=== PATIENT | female | born 1965 | race Caucasian/White ===

== ENCOUNTER → 2018-07-19 | Day surgery (SDC) | payer BC, OTHER ==
[~2018-07-19] VITALS: Ht 170.1 cm; Wt 136.1 kg
[~2018-07-19] MED LIST: ATARAX,VISTARIL50 MG PO; CELEXA20 MG PO; CITALOPRAM20 MG PO; CONTRAVE1 TER PO; LEVOTHYROXINE0.2 MG PO; LEVOTHYROXINE137 MCG PO; MEDROL DOSEPAK4 MG PO; METFORMIN HYDR500 MG PO; PREDNISONE20 M1 PO; ZADITOR 5 ML5 M1 OPH
--- NOTE | ~2018-07-19 | O ---
[place], [place] OPERATIVE NOTE NAME: ANTONIA HARRINGTON UNIT #: [id number] ROOM: DOCTOR: CHAR[facility] B[facility] [birth year] DOS: 07/19/2018 GASTROENDOSCOPIC REPORT INDICATIONS: This is a 52-year-old, who presented with a chief complaint of dyspepsia on colonic screening, undergoing investigation. ALLERGIES: No known medication. FAMILY HISTORY: Noncontributory. PAST SURGICAL HISTORY: Tubal ligation. PAST MEDICAL HISTORY: Obesity, hypothyroidism, anxiety, vitamin D deficiency, gastritis, and nausea on Zofran. SOCIAL HISTORY: Nonsmoker, social alcohol consumer. PROCEDURE: Today's procedure part of investigation is panendoscopy and colonoscopy. PREMEDICATION: Propofol. SCOPE: Olympus forward-viewing gastroscope Q10 video. REPORT: After putting the patient in left lateral position, application of lubricant to the scope, the scope was introduced. Thereafter, under direct visualization, advanced through the length of esophagus without difficulty. A 3 cm hiatal hernia was noticed. Gastric pouch was entered. Mild gastritis seen. Duodenal bulb, second and third part are free of ulceration and lesion. Scope was withdrawn back. GI reflexion of the scope again reveals cardia to be benign. Hiatal hernia was confirmed. Antral biopsy obtained. Air was suctioned out. The patient was extubated, tolerated the procedure well. IMPRESSION: Small hiatal hernia, gastritis, status post biopsy for H. pylori. PLAN AND DISCUSSION: Continuation with famotidine perhaps for dyspepsia would be adequate enough. This patient's upper GI is cleared for her preplanned gastric bypass. We are going to proceed with colonoscopic examination as far as screening is concern. The patient has presented for colonic screening. FAMILY HISTORY: Unremarkable. PROCEDURE: Today's procedure part of investigation is colonoscopy. PREMEDICATION: Propofol. SCOPE: Olympus folding colonoscope 10L video. [place], [place] OPERATIVE NOTE NAME: ANTONIA HARRINGTON UNIT #: [id number] ROOM: DOCTOR: CHARLES HAMEED [facility] BIRTHDATE: [birth year] REPORT: After putting the patient in left lateral position and application of lubricant to the scope, the scope was introduced. Thereafter, under direct visualization, advanced through the length of colon without difficulty. Colon mucosa and vascularity carefully examined. Base of the cecum explored, appendiceal orifice identified, ileocecal valve was defined. Air was suctioned out. After photographic series of the base of cecum and the patient extubated to the transverse colon and descending colon, mild diverticulosis of sigmoid colon identified, photographed. The patient extubated, tolerated procedure well. IMPRESSION: Diverticulosis, otherwise normal colonoscopic examination. ACTIVITY: Ad marcelle. FOLLOWUP: As outpatient. PLAN AND DISCUSSION: High fiber diet. Follow up routinely with you in office, p.r.n. visit with us in GI clinic. Thank you very much indeed. TJ HAMEED MD CM:OPRECORD:OPERATIVE NOTE [id number] TJ HAMEED MD 07/19/18 1240 interface
[2018-07-19 08:50] VITALS: BP 130/68
[2018-07-19 10:00] VITALS: BP 105/54
[2018-07-19 10:15] VITALS: BP 100/52
[2018-07-19 10:28] VITALS: BP 108/66
== END | disposition home or self-care (01) ==
LOC: SDC 07-17 14:00
DX: Z12.11 Encounter for screening for malignant neoplasm of colon (principal); K57.30 Diverticulosis of large intestine without perforation or abscess without bleeding; K29.50 Unspecified chronic gastritis without bleeding; K44.9 Diaphragmatic hernia without obstruction or gangrene; E03.9 Hypothyroidism, unspecified; E11.9 Type 2 diabetes mellitus without complications; E66.01 Morbid (severe) obesity due to excess calories; F41.8 Other specified anxiety disorders; Z79.899 Other long term (current) drug therapy; Z98.51 Tubal ligation status; Z79.84 Long term (current) use of oral hypoglycemic drugs; Z68.42 Body mass index [BMI] 45.0-49.9, adult

== ENCOUNTER → 2018-09-07 | Outpatient (CLI) | payer BC, OTHER | END | disposition home or self-care (01) | LOC: RAD 11:19 | DX: Z01.818 Encounter for other preprocedural examination (principal); E66.01 Morbid (severe) obesity due to excess calories ==

== ENCOUNTER 2019-06-25 19:13 | Emergency (ER) | payer BC, OTHER ==
[~2019-06-25] VITALS: Ht 167.6 cm; Wt 100.3 kg
--- NOTE | ~2019-06-25 | EKG ---
[place], [place] ELECTROCARDIOGRAM REPORT NAME: ANTONIA HARRINGTON UNIT #: [id number] ROOM: DOCTOR: EPIPHANY DRAFT REPORT BIRTHDATE: [birth year] [facility] Test Date: 2019-06-25 Test Time: 22:07:37 Pat Name: ANTONIA HARRINGTON Department: ED Room: Gender: F Packer: Jonathan Marley : 1965 Requested By: TYLER MAYBERRY Order Number: [id number] Reading MD: Kori Patton MD Measurements Intervals [place] Rate: 47 P: 31 LA: 167 QRS: 22 QRSD: 93 T: 31 QT: 464 QTc: 411 Interpretive Statements Sinus bradycardia Abnormal R-wave progression, early transition Electronically Signed On 07-09-2019 7:27:59 PDT by Kori Patton MD CM:EKGRPT:ELECTROCARDIOGRAM REPORT 0727 TYLER MARTINEZ DRAFT REPORT TYLER MAYBERRY DO
--- NOTE | ~2019-06-25 | EKG ---
[place], [place] ELECTROCARDIOGRAM REPORT NAME: ANTONIA HARRINGTON UNIT #: [id number] ROOM: DOCTOR: EPIPHANY DRAFT REPORT BIRTHDATE: [birth year] [facility] Test Date: 2019-06-25 Test Time: 19:15:20 Pat Name: ANTONIA HARRINGTON Department: ED Room: Gender: F Panel Machine Tender: : 1965 Requested By: TYLER MAYBERRY Order Number: [id number] Reading MD: Kori Patton MD Measurements Intervals [place] Rate: 58 P: 9 NE: 148 QRS: 28 QRSD: 89 T: 40 QT: 419 QTc: 412 Interpretive Statements Sinus rhythm NormalECG Electronically Signed On 07-09-2019 7:27:49 PDT by Kori Patton MD CM:EKGRPT:ELECTROCARDIOGRAM REPORT [id number] TYLER MARTINEZ DRAFT REPORT TYLER MAYBERRY DO
[2019-06-25 19:34] LABS: BASO % 0.5 % (0.0-1.0); EOS # 0.3 10*3/uL (0.0-0.4); EOS % 3.5 % (1.0-4.0); HEMATOCRIT 37.9 % (37.0-47.0); HEMOGLOBIN 12.2 g/dl (12.0-16.0); LYMPH # 2.5 10*3/uL (1.3-4.4); LYMPH % 30.2 % (27.0-41.0); MEAN CELL VOLUME 92.4 fl (81.0-99.0); MEAN CORPUSCULAR HGB 29.8 pg (27.0-31.0); MEAN CORPUSCULAR HGB CONC 32.2 g/dl (33.0-37.0); MEAN PLATELET VOLUME 10.6 fl (9.6-12.3); MONO # 0.7 10*3/uL (0.1-1.0); MONO % 8.5 % (3.0-9.0); NEUT # 4.7 10*3/uL (2.3-7.9); NEUT % 57.2 % (47.0-73.0); PLATELET COUNT AUTOMATED 245 10*3/uL (130-400); RED CELL DISTRI WIDTH 13.6 % (0-14.5); WHITE BLOOD COUNT 8.3 10*3/uL (4.8-10.8)
[2019-06-25 19:49] LABS: INTERNATIONAL NORM RATIO 0.9 (2.0-3.5)
[2019-06-25 19:50] LABS: ALKALINE PHOSPHATASE 133 U/L (45-117); BUN 12 mg/dl (7-24); CHLORIDE 110 mmol/L (98-107); CREATININE 0.96 mg/dL (0.55-1.02); POTASSIUM 4.3 mmol/L (3.5-5.1); SGOT/AST 25 IU/L (3-35); SGPT/ALT 40 U/L (12-78); SODIUM 142 mmol/L (136-145); TOTAL PROTEIN 6.9 gm/dL (6.4-8.2)
[2019-06-25 19:51] LABS: TROPONIN I < 0.015 ng/ml (<0.045)
[2019-06-25 20:09] LABS: FREE T4 1.06 ng/dl (0.76-1.46)
[2019-06-25 20:13] LABS: THYROID STIM HORMONE (HS) 6.87 uIU/ml (0.358-4.75)
== END 2019-06-25 23:20 | disposition home or self-care (01) ==
LOC: ED 19:13
PROVIDERS: Hospitalist; Student in an Organized Health Care Education/Training Program
DX: R07.89 Other chest pain (principal); R42 Dizziness and giddiness; R51 Headache; R11.2 Nausea with vomiting, unspecified; R61 Generalized hyperhidrosis; M54.6 Pain in thoracic spine; Z79.899 Other long term (current) drug therapy

== ENCOUNTER 2020-02-15 01:00 | Emergency (ER) | payer BC, OTHER ==
[~2020-02-15] VITALS: Ht 170.1 cm; Wt 86.2 kg
[2020-02-15 01:30] LABS: BILIRUBIN NEGATIVE (NEGATIVE); BLOOD TRACE-INTACT (NEGATIVE); CLARITY SL CLOUDY (CLEAR); COLOR YELLOW (YELLOW); GLUCOSE NEGATIVE (NEGATIVE); KETONE NEGATIVE (NEGATIVE); LEUKO ESTERASE TRACE (NEGATIVE); NITRITE NEGATIVE (NEGATIVE); UROBILINOGEN 0.2 E.U./dl (0.2-1.0)
[2020-02-15 01:36] LABS: EPITHELIAL CELLS 16-20
[2020-02-15 01:37] LABS: BACTERIA TRACE; RBC 16-20 rbc/hpf (0-2); WBC 16-20 wbc/hpf (0-5)
== END 2020-02-15 03:00 | disposition home or self-care (01) ==
LOC: ED 01:00
PROVIDERS: Emergency Medicine
DX: R10.2 Pelvic and perineal pain (principal); R10.9 Unspecified abdominal pain; R45.1 Restlessness and agitation; E11.9 Type 2 diabetes mellitus without complications; E07.9 Disorder of thyroid, unspecified; Z79.899 Other long term (current) drug therapy; Z98.51 Tubal ligation status; Z53.29 Procedure and treatment not carried out because of patient's decision for other reasons

== ENCOUNTER → 2023-10-10 | Outpatient (CLI) | payer OTHER ==
[2023-10-10 14:40] LABS: BASO # 0.1 10*3/uL (0.0-0.1); BASO % 0.7 % (0.0-1.0); EOS # 0.2 10*3/uL (0.0-0.4); EOS % 2.2 % (1.0-4.0); HEMATOCRIT 41.2 % (37.0-47.0); LYMPH % 26.3 % (27.0-41.0); MEAN CELL VOLUME 90.7 fl (81.0-99.0); MEAN CORPUSCULAR HGB 29.1 pg (27.0-31.0); MEAN PLATELET VOLUME 9.9 fl (9.6-12.3); MONO # 0.6 10*3/uL (0.1-1.0); MONO % 8.2 % (3.0-9.0); NEUT # 4.8 10*3/uL (2.3-7.9); NEUT % 62.2 % (47.0-73.0); PLATELET COUNT AUTOMATED 265 10*3/uL (130-400); RED BLOOD COUNT 4.54 10*6/uL (4.10-5.10); RED CELL DISTRI WIDTH 13.3 % (0-14.5); WHITE BLOOD COUNT 7.7 10*3/uL (4.8-10.8)
[2023-10-10 15:06] LABS: VITAMIN D, 25-HYDROXY 35.2 ng/mL (30-100)
[2023-10-10 15:09] LABS: ALKALINE PHOSPHATASE 112 U/L (46-116); BUN 11 mg/dl (9-23); CHLORIDE 109 mmol/L (98-107); CHOLESTEROL 158 mg/dL (<200); FREE T4 0.88 ng/dl (0.89-1.76); LDL CHOLESTEROL 75 mg/dL (9-159); POTASSIUM 4.5 mmol/L (3.4-5.1); SGPT/ALT 17 U/L (5-49); TOTAL PROTEIN 7.3 gm/dL (6.0-8.0); TRIGLYCERIDES 112 mg/dl (<150)
== END | disposition home or self-care (01) ==
LOC: LAB 13:48
PROVIDERS: ATTEND Nurse Practitioner Family
DX: S09.90XA Unspecified injury of head, initial encounter (principal); M48.02 Spinal stenosis, cervical region; M89.8X1 Other specified disorders of bone, shoulder; M25.521 Pain in right elbow; E03.9 Hypothyroidism, unspecified; Z13.0 Encounter for screening for diseases of the blood and blood-forming organs and certain disorders involving the immune mechanism; Z13.220 Encounter for screening for lipoid disorders; Z13.1 Encounter for screening for diabetes mellitus; Z13.228 Encounter for screening for other metabolic disorders; R53.83 Other fatigue; M54.6 Pain in thoracic spine; R07.1 Chest pain on breathing; W19.XXXA Unspecified fall, initial encounter; Y93.89 Activity, other specified; Y92.89 Other specified places as the place of occurrence of the external cause; Y99.8 Other external cause status

== ENCOUNTER → 2023-10-26 | Outpatient (CLI) | payer OTHER | END | disposition home or self-care (01) | LOC: RAD 15:05 | PROVIDERS: ATTEND Nurse Practitioner Family | DX: J40 Bronchitis, not specified as acute or chronic (principal); R51.9 Headache, unspecified; R53.83 Other fatigue ==